=== PATIENT | female | born 1945 | race Native Hawaiian/Other Pacific Islander ===

== ENCOUNTER 2016-09-14 09:34 | Emergency (ER) | payer OTHER ==
[~2016-09-14] VITALS: Ht 162.6 cm; Wt 61.2 kg
[2016-09-14 10:10] VITALS: TEMP 98
[2016-09-14] MEDS ORDERED: HYDROCHLOROT50 MG PO (10:38)
[2016-09-14] MEDS ORDERED: SIMV40TA57 PO (10:38)
[2016-09-14] MEDS ORDERED: TGT OMEPRAZOLE20 MG PO (10:39)
[2016-09-14] MEDS ORDERED: ASPIRIN 81 LOW81 MG PO (10:39)
[2016-09-14] MEDS ORDERED: THERATEARS OP (10:39)
[2016-09-14] MEDS ORDERED: FISH OIL1 C10 PO (10:39)
[2016-09-14] MEDS ORDERED: CENTRUM ADULTS1 TAB PO (10:40)
[2016-09-14] MEDS ORDERED: FLAX OIL PO (10:40)
[2016-09-14] MEDS ORDERED: MECLIZINE25 MG PO (10:41)
[2016-09-14] MEDS ORDERED: PROM25TA52 PO (10:41)
[2016-09-14] MEDS ORDERED: VERA120T22 PO (10:42)
[2016-09-14] MEDS ORDERED: STOOL SOFTENER240 MG PO (10:42)
[2016-09-14 11:22] LABS: POTASSIUM 2.9 mmol/L (3.6-5.2)
[2016-09-14 13:10] VITALS: BP 168/80
== END 2016-09-14 13:10 | disposition home or self-care (01) ==
LOC: ED 09:34
DX: E87.1 Hypo-osmolality and hyponatremia (principal); E87.6 Hypokalemia; E83.42 Hypomagnesemia
CPT/HCPCS: 36415; 80053; 83735; 99283

== ENCOUNTER 2017-03-20 10:50 | Outpatient (CLI) | payer OTHER ==
[~2017-03-20 10:50] MED LIST: ASPIRIN 81 LOW81 MG PO; CENTRUM ADULTS1 TAB PO; FISH OIL1 C10 PO; FLAX OIL PO; HYDROCHLOROT50 MG PO; MECLIZINE25 MG PO; PROM25TA52 PO; SIMV40TA57 PO; STOOL SOFTENER240 MG PO; TGT OMEPRAZOLE20 MG PO; THERATEARS OP; VERA120T22 PO
== END 2017-03-20 12:00 | disposition home or self-care (01) ==
LOC: MAMMO 10:50
DX: Z12.31 Encounter for screening mammogram for malignant neoplasm of breast (principal)

== ENCOUNTER 2018-03-23 13:10 | Outpatient (CLI) | payer OTHER | END 2018-03-23 20:02 | disposition home or self-care (01) | LOC: MAMMO 13:10 | DX: Z12.31 Encounter for screening mammogram for malignant neoplasm of breast (principal) ==

== ENCOUNTER 2018-11-04 09:40 | Outpatient (CLI) | payer OTHER | END 2018-11-04 23:43 | disposition home or self-care (01) | LOC: MAMMO 09:40 | DX: N60.01 Solitary cyst of right breast (principal) ==

== ENCOUNTER 2019-03-25 13:16 | Outpatient (CLI) | payer OTHER | END 2019-03-25 20:40 | disposition home or self-care (01) | LOC: MAMMO 13:16 | DX: Z12.31 Encounter for screening mammogram for malignant neoplasm of breast (principal) ==

== ENCOUNTER 2019-04-16 10:31 | Outpatient (CLI) | payer OTHER, MEDICARE | END 2019-04-16 19:25 | disposition home or self-care (01) | LOC: RESP 10:31 | DX: Z01.810 Encounter for preprocedural cardiovascular examination (principal); Z01.811 Encounter for preprocedural respiratory examination; Z01.812 Encounter for preprocedural laboratory examination; I65.23 Occlusion and stenosis of bilateral carotid arteries | CPT/HCPCS: 93005 ==

== ENCOUNTER 2020-03-31 13:07 | Outpatient (CLI) | payer OTHER, MEDICARE | END 2020-03-31 19:12 | disposition home or self-care (01) | LOC: MAMMO 13:07 | DX: Z12.31 Encounter for screening mammogram for malignant neoplasm of breast (principal) ==

== ENCOUNTER 2021-04-02 12:56 | Outpatient (CLI) | payer OTHER, MEDICARE | END 2021-04-02 20:25 | disposition home or self-care (01) | LOC: MAMMO 12:56 | PROVIDERS: ATTEND Obstetrics & Gynecology | DX: Z12.31 Encounter for screening mammogram for malignant neoplasm of breast (principal); Z13.820 Encounter for screening for osteoporosis; M81.0 Age-related osteoporosis without current pathological fracture ==

== ENCOUNTER 2021-09-17 14:12 | Outpatient (CLI) | payer OTHER, MEDICARE | END 2021-09-17 21:23 | disposition home or self-care (01) | LOC: LAB 14:12 | PROVIDERS: ATTEND Physician Assistant Medical | DX: R30.0 Dysuria (principal) | CPT/HCPCS: 81000 ==

== ENCOUNTER 2022-04-04 09:00 | Outpatient (CLI) | payer OTHER, MEDICARE | END 2022-04-04 19:48 | disposition home or self-care (01) | LOC: MAMMO 09:00 | PROVIDERS: ATTEND Obstetrics & Gynecology | DX: Z12.31 Encounter for screening mammogram for malignant neoplasm of breast (principal) ==